=== PATIENT | female | born 1985 | race Caucasian/White ===

== ENCOUNTER 2019-10-02 15:05 | Emergency (ER) | payer SELFPAY ==
[~2019-10-02] VITALS: Ht 160 cm; Wt 93.4 kg
--- NOTE | 2019-10-02 15:10 | NUR ---
[id number] FROM A PARKING LOT C/O SOB, HX ASTHMA. ALBUTEROL NEB GIVEN PRODUCT DEVELOPMENT ENGINEER. ON 02 @ 2LPM VIA NC. CONNECTED TO THE MONITOR AND PULSE OX. KEPT COMFORTABLE, WILL CONTINUE TO MONITOR ACCORDINGLY.
[2019-10-02] MEDS ORDERED: methylPREDNISolone SOD SUCC 125 MG/2ML VIAL ONE (15:20)
[2019-10-02] MEDS ORDERED: IPRATROPIUM NEB FS 0.5 MG/2.5 ML AMPUL.NEB ONE (15:26)
[2019-10-02] MEDS ORDERED: ALBUTEROL FS 2.5 MG/3 ML VIAL.NEB ONE (15:26)
[2019-10-02] MEDS ORDERED: IPRATROPIUM NEB FS 0.5 MG/2.5 ML AMPUL.NEB NEB ONE (15:30)
[2019-10-02] MEDS ORDERED: methylPREDNISolone SOD SUCC 125 MG/2ML VIAL IV ONE (15:30)
[2019-10-02] MEDS ORDERED: ALBUTEROL FS 2.5 MG/3 ML VIAL.NEB CONTNEB ONE (15:30)
[2019-10-02] MEDS ORDERED: BENZONATATE 100 MG CAPSULE PO PRN (17:00)
[2019-10-02 17:39] VITALS: BP 125/71
--- NOTE | 2019-10-02 17:40 | NUR ---
Patient discharged to home in stable condition. Written and verbal after care instructions given. Patient verbalizes understanding of instruction.IV removed. Catheter intact and site benign. Pressure and 4x4 applied to site. No bleeding noted.
== END 2019-10-02 17:40 | disposition home or self-care (01) ==
LOC: ER 15:07
DX: J45.901 Unspecified asthma with (acute) exacerbation (principal); Z88.1 Allergy status to other antibiotic agents
CPT/HCPCS: 71045; 94640; 96374; 99285; J2930